=== PATIENT | female | born 1965 | race Caucasian/White ===

== ENCOUNTER → 2017-07-26 | Outpatient (CLI) | payer OTHER ==
--- NOTE | 2017-07-26 12:28 | XR ---
EXAMINATION TYPE: XR lumbar spine 2 or 3V DATE OF EXAM: 07/26/2017 COMPARISON: NONE HISTORY: 52-year-old female with low back pain TECHNIQUE: 3 views FINDINGS: Mild facet degenerative change mid and lower lumbar spine. Mild degenerative disc interspace narrowin g at L5-S1. Vertebral body heights are preserved and alignment is maintained. Mild disc interspace na rrowing at T11-T12 and T12-L1 as well. IMPRESSION: Mild facet arthropathy mid and lower lumbar spine and scattered mild degenerative disc disease. No ve rtebral compression collapse or malalignment.
== END | disposition home or self-care (01) ==
LOC: RADXRYALE 10:59
PROVIDERS: ATTEND Family Medicine
DX: M51.36 Other intervertebral disc degeneration, lumbar region (principal); M46.96 Unspecified inflammatory spondylopathy, lumbar region
CPT/HCPCS: 72100

== ENCOUNTER 2021-06-28 14:23 | Emergency (ER) | payer OTHER ==
[2021-06-28 15:14] VITALS: TEMP 98.4
[2021-06-28] MEDS ORDERED: IBUPROFEN 600 MG TAB PO STA (15:37)
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
--- NOTE | 2021-06-28 15:59 | XR ---
EXAMINATION TYPE: XR ribs LT w pa chest xray DATE OF EXAM: 06/28/2021 COMPARISON: NONE HISTORY: Rib pain TECHNIQUE: 5 views FINDINGS: Heart and mediastinum are normal. Lungs are clear. Diaphragm is normal. There is no sign of pleural effusion or pneumothorax. Left ribs appear intact. I see no rib fracture. IMPRESSION: Normal chest. Normal left ribs.
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
[2021-06-28 16:54] VITALS: RESP 18
[2021-06-28] MEDS ORDERED: LIDOCAINE 5% PATCH TOPICAL STA (17:15)
[2021-06-28 17:53] VITALS: BP 145/95; PULSE 102
== END 2021-06-28 18:17 | disposition home or self-care (01) ==
LOC: EC 14:23 → MERGE 14:23 → EC 18:17
DX: S09.90XA Unspecified injury of head, initial encounter (principal); R07.89 Other chest pain; R40.2362 Coma scale, best motor response, obeys commands, at arrival to emergency department; R40.2142 Coma scale, eyes open, spontaneous, at arrival to emergency department; R40.2252 Coma scale, best verbal response, oriented, at arrival to emergency department; Z87.891 Personal history of nicotine dependence; V89.2XXA Person injured in unspecified motor-vehicle accident, traffic, initial encounter; Y92.481 Parking lot as the place of occurrence of the external cause
CPT/HCPCS: 70450; 99284

== ENCOUNTER → 2025-01-01 | Outpatient (CLI) | payer SELFPAY ==
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
== END | disposition home or self-care (01) ==
LOC: RADXRYALE 11:54
PROVIDERS: ATTEND Family Medicine
DX: M85.852 Other specified disorders of bone density and structure, left thigh (principal); M25.852 Other specified joint disorders, left hip
CPT/HCPCS: 73502